=== PATIENT | female | born 1955 | race Asian ===

== ENCOUNTER 2016-11-13 12:38 | Emergency (ER) | payer OTHER ==
[2016-11-13 12:48] VITALS: TEMP 98.3; BMI 24.2
--- NOTE | 2016-11-13 14:20 | PDOC ---
History of Present Illness - General Chief Complaint: Wound Stated Complaint: SWOLLEN RT HAND Time Seen by Provider: 11/13/16 12:55 History Source: Patient, Friend Exam Limitations: No Limitations - History of Present Illness Initial Comments: 11/13/16 13:45 61F with pmh of HTN on norvasc and metoprolol, DM2 on metformin and HLD on statins present for swollen, warm, right hand and forearm with a erythematous rash. She went to Dr. Cardenas this morning who sent her to the ED to be evaluated for infection. The patient had 4-5 similar episodes for the past 3 month in both feet but never in the hand before. The episodes usually start with an itch which usually precedes the swelling and always disappear upon taking Zyrtec. Two months ago when she had one of those episode she had a venous duplex done by Dr. Preston her primary physician which was negative. Those episodes were ruled as allergic reaction to unknown allergen and the patient has an appointment to see an restaurant line cook on 11/15/16. She was told not to take any antihistamines from 5 days before her appointment. The patient is comfortable, not in in any pain. No discoloration of the hand, skin changes, cap refill 2 seconds, 2+ radial pulse equal on both hands. 11/13/16 14:21 11/13/16 16:22 Past History - Past Medical History Allergies/Adverse Reactions: Allergies Allergy/AdvReac Type Severity Reaction Status Date / Time No Known Allergies Allergy Verified 11/13/16 12:48 Home Medications: Ambulatory Orders Amlodipine Besylate [Norvasc -] 5 mg PO DAILY 11/13/16 Metformin HCl 500 mg PO BID 11/13/16 Methylprednisolone [Medrol Dose Kranthi] 4 mg PO ASDIR #21 tablet 11/13/16 Metoprolol Succinate [Toprol Xl] 50 mg PO DAILY 11/13/16 Simvastatin 10 mg PO HS 11/13/16 Diabetes: Yes HTN: Yes Hypercholesterolemia: Yes - Psycho/Social/Smoking Cessation Hx Suicidal Ideation: No Smoking History: Never smoked Information on smoking cessation initiated: No Review of Systems - Review of Systems Is the patient limited [place] proficient: No Constitutional: No: Fever, Night Sweats, Weakness HEENTM: No: Symptoms Reported Respiratory: No: Cough, Shortness of Breath, Wheezing, Productive cough Cardiac (ROS): No: Symptoms Reported, Lightheadedness, Palpitations ABD/GI: No: Symptoms Reported : No: Symptoms Reported, Burning, Dysuria, Discharge, Frequency Musculoskeletal: No: Back Pain, Gout, Joint Pain, Joint Swelling, Muscle Pain, Muscle Weakness, Joint Stiffness Integumentary: Yes: See HPI. No: Bruising Neurological: No: Headache, Numbness, Paresthesia Endocrine: No: Excessive Sweating, Flushing, Intolerance to Cold, Intolerance to Heat Hematologic/Lymphatic: No: Anemia, Blood Clots *Physical Exam - Vital Signs Last Vital Signs Temp Pulse Resp BP Pulse Ox 98.3 F 97 H 18 161/88 100 11/13/16 12:44 11/13/16 12:44 11/13/16 12:44 11/13/16 12:44 11/13/16 12:44 - Physical Exam General Appearance: Yes: Nourished, Appropriately Dressed. No: Apparent Distress HEENT: positive: EOMI, KAREN, Normal ENT Inspection Neck: positive: Trachea midline, Normal Thyroid, Supple. negative: Tender Respiratory/Chest: positive: Lungs Clear, Normal Breath Sounds. negative: Chest Tender Cardiovascular: positive: Regular Rhythm, S1, S2, Tachycardia Vascular Pulses: Dorsalis-Pedis (R): 2+, Doralis-Pedis (L): 2+ Comments:: 11/13/16 14:40 2+ radial pulse b/l Gastrointestinal/Abdominal: positive: Normal Bowel Sounds, Soft. negative: Tender, Tenderness Extremity: positive: Normal Capillary Refill (post-pruritic, edematous R hand and forearm with non-blanching non-raised erythematous irregular patch-like rash.) ED Treatment Course - LABORATORY CBC & Chemistry Diagram: 11/13/16 14:46 11/13/16 14:46 Medical Decision Making - Medical Decision Making 11/13/16 14:46 61F with pmh of HTN, DM2 and HLD sent by PCP for swollen, warm right hand and forearm with a erythematous rash similar to previous allergic reactions. Patient sent to ED by Dr Cardenas to r/o infectious etiology. Paged patient restaurant line cook Dr. Barrow which she is to see in two days. CBC and CMP pending. 11/13/16 16:[address] Barrow who suggested that the presentation probably is a form of angioedema and tpo treat the patient accordingly. Patient given Benaydryl and Loratidine as well as medrol pack to take as out patient if symptoms recur until her appointment . *DC/Admit/Observation/Transfer Diagnosis at time of Disposition: Angioedema - Discharge Dispostion Disposition: HOME Condition at time of disposition: Improved Admit: No - Prescriptions Prescriptions: Methylprednisolone [Medrol Dose Kranthi] 4 mg PO ASDIR #21 tablet - Patient Instructions Printed Discharge Instructions: Angioedema Additional Instructions: Take Medrol medication if symptoms recur between now and your appointment with restaurant line cook on .
--- NOTE | 2016-11-13 15:05 | PDOC ---
Attending Attestation - Resident Resident Name: César Branham - ED Attending Attestation I have performed the following: I have examined & evaluated the patient, The case was reviewed & discussed with the resident, I agree w/resident's findings & plan, Exceptions are as noted - HPI HPI: 11/13/16 15:00 61y/o F DM with recent intermittent exacerbations of unilateral foot swelling/ redness that resolves spontaneously with zyrtec, believed to be histamine/ allergy reaction, now p/w same reaction to R hand since last night. + swelling, no pain, no f/c. no motor/sensory deficit. Pt would have taken zyrtec but she has an immunology appt and was told not to take antihistamines. States swelling/redness has improved significantly since last night, but was referred here to r/o cellulitis. - Physicial Exam PE: 11/13/16 15:02 Afebrile. Well-appearing. Right upper extremity: Dorsal hand edema radiating to the distal ventral forearm , warm but without cellulitis/erythema, scattered 1 mm CTA on the dorsum of the hand, otherwise no rash. No wrestling intact, full range of motion of joints. - Medical Decision Making 11/13/16 15:03 Patient seen and evaluated with the resident. I agree with the overall evaluation, assessment, and management with the following summary of visit: 61-year-old female presents with right upper extremity/hand swelling and itching since last night, similar to prior episodes in the feet resolved with antihistamines. Less consistent with infectious process or cellulitis, more likely an exacerbation of this allergic response. check cbc will discuss with supervisor pyrotechnic loading regarding any preferred antihistamine, but should be treated given exacerbation no airway compromise
[2016-11-13 15:21] LABS: BASOPHIL 0.5 % (0-2.0); EOSINOPHIL 3.7 % (0-4.5); MCH 27.1 pg (25.7-33.7); MCHC 32.9 g/dl (32.0-36.0); MEAN CELL VOLUME 82.6 fl (80-96); MEAN PLT VOLUME 7.3 fl (7.5-11.1); NEUTROPHILS 51.7 % (42.8-82.8); PLATELET COUNT 430 K/MM3 (134-434); RDW 14.2 % (11.6-15.6); WHITE BLOOD COUNT 9.4 K/mm3 (4.0-10.0)
[2016-11-13 15:45] LABS: ALK PHOS 105 U/L (45-117); ANION GAP 9 (8-16); BILIRUBIN,TOTAL 0.4 mg/dL (0.2-1.0); CALCIUM 9.5 mg/dL (8.5-10.1); CO2 27 mmol/L (21-32); CREATININE 0.8 mg/dL (0.55-1.02); GLUCOSE,RANDOM 99 mg/dL (74-106); SGOT/AST 21 U/L (15-37); SGPT/ALT 23 U/L (12-78); TOT PROT 8.5 g/dl (6.4-8.2)
[2016-11-13] MEDS ORDERED: diphenhydrAMINE HCL 25 MG CAPSULE (FP) PO ONE ×2 (15:49→16:09)
[2016-11-13] MEDS ORDERED: LORATADINE 10 MG TABLET PO ONE (15:50)
[2016-11-13] MEDS ORDERED: LORATADINE 10 MG TABLET ONE (16:09)
[2016-11-13 16:22] VITALS: BP 120/76; PULSE 86
== END 2016-11-13 17:13 | disposition home or self-care (01) ==
LOC: JER 12:38
DX: T78.3XXA Angioneurotic edema, initial encounter (principal); I10 Essential (primary) hypertension; E11.9 Type 2 diabetes mellitus without complications; Z79.84 Long term (current) use of oral hypoglycemic drugs; E78.00 Pure hypercholesterolemia, unspecified
CPT/HCPCS: 36415; 80053; 85025; 99282-25